=== PATIENT | female | born 1995 | race Caucasian/White ===

== ENCOUNTER 2018-03-03 15:30 | Inpatient (IN) | payer MEDICAID ==
[~2018-03-03] VITALS: Ht 157.5 cm; Wt 45.5 kg
[~2018-03-03 15:30] MED LIST: MACR100C PO; PYRI200T4 PO
[2018-03-03 15:34] VITALS: BP 124/78; PULSE 87; RESP 16; TEMP 98.3; O2SAT 99
--- NOTE | 2018-03-03 15:42 | PD ---
HPI Chief Complaint: Psychiatric Symptoms Time Seen by Provider: 15:40 Travel History International Travel<30 days: No Contact w/Intl Traveler<30days: No Traveled to known affect area: No History of Present Illness HPI 23-year-old female with history of schizophrenia is brought to the emergency department under Gonzalez act for psychiatric evaluation. Patient has not been taking medication. She tells me she does not need to take any medication. Her behavior has become more bizarre and paranoid per the Gonzalez act. Patient was Gonzalez acted for this and she does not believe that she needs to be here. She denies suicidal or homicidal ideations. Denies illicit drug use. She denies any acute medical needs. PFSH Past Medical History Schizophrenia: Yes ?: Not LMP: UNKNOWN Social History Alcohol Use: No Tobacco Use: No Substance Use: No Allergies-Medications (Allergen,Severity, Reaction): Coded Allergies: No Known Allergies (Unverified , 07/03/13) Reported Meds & Prescriptions Reported Meds & Active Scripts Active No Active Prescriptions or Reported Medications Review of Systems Except as stated in HPI: all other systems reviewed are Neg Physical Exam Narrative GENERAL: Well-nourished female patient in no acute distress SKIN: Focused skin assessment warm/dry. HEAD: Atraumatic. Normocephalic. EYES: Pupils equal and round. No scleral icterus. No injection or drainage. ENT: No nasal bleeding or discharge. Mucous membranes pink and moist. NECK: Trachea midline. No JVD. CARDIOVASCULAR: Regular rate and rhythm. No murmur appreciated. RESPIRATORY: No accessory muscle use. Clear to auscultation. Breath sounds equal bilaterally. GASTROINTESTINAL: Abdomen soft, non-tender, nondistended. Hepatic and splenic margins not palpable. MUSCULOSKELETAL: No obvious deformities. No clubbing. No cyanosis. No edema. NEUROLOGICAL: Awake and alert. No obvious cranial nerve deficits. Motor grossly within normal limits. Normal speech. Data Data Last Documented VS Vital Signs Date Time Temp Pulse Resp B/P (MAP) Pulse Ox O2 Delivery O2 Flow Rate FiO2 03/03/18 15:34 98.3 87 16 124/78 (93) 99 Orders Orders Complete Blood Count With Diff (03/03/18 15:40) Thyroid Stimulating Hormone (03/03/18 15:40) Basic Metabolic Panel (Bmp) (03/03/18 15:40) Ed Urine Pregnancytest Poc (03/03/18 15:40) Psych Screen (03/03/18 15:40) Drug Screen, Random Urine (03/03/18 15:40) Alcohol (Ethanol) (03/03/18 15:40) Diet Regular Basic (03/03/18 Dinner) Labs Laboratory Tests Test 03/03/18 15:55 White Blood Count 11.0 TH/MM3 Red Blood Count 4.76 MIL/MM3 Hemoglobin 14.0 GM/DL Hematocrit 41.3 % Mean Corpuscular Volume 86.8 FL Mean Corpuscular Hemoglobin 29.4 PG Mean Corpuscular Hemoglobin Concent 33.9 % Red Cell Distribution Width 12.5 % Platelet Count 260 TH/MM3 Mean Platelet Volume 10.0 FL Neutrophils (%) (Auto) 75.1 % Lymphocytes (%) (Auto) 19.6 % Monocytes (%) (Auto) 4.5 % Eosinophils (%) (Auto) 0.4 % Basophils (%) (Auto) 0.4 % Neutrophils # (Auto) 8.3 TH/MM3 Lymphocytes # (Auto) 2.1 TH/MM3 Monocytes # (Auto) 0.5 TH/MM3 Eosinophils # (Auto) 0.0 TH/MM3 Basophils # (Auto) 0.0 TH/MM3 CBC Comment DIFF FINAL Differential Comment Blood Urea Nitrogen 7 MG/DL Creatinine 0.91 MG/DL Random Glucose 134 MG/DL Calcium Level 8.9 MG/DL Sodium Level 138 MEQ/L Potassium Level 3.7 MEQ/L Chloride Level 105 MEQ/L Carbon Dioxide Level 22.2 MEQ/L Anion Gap 11 MEQ/L Estimat Glomerular Filtration Rate 77 ML/MIN Thyroid Stimulating Hormone 3rd Gen 0.522 uIU/ML Urine Opiates Screen NEG Urine Barbiturates Screen NEG Urine Amphetamines Screen NEG Urine Benzodiazepines Screen NEG Urine Cocaine Screen NEG Urine Cannabinoids Screen POS Ethyl Alcohol Level LESS THAN 3 MG/DL MDM Medical Decision Making Medical Screen Exam Complete: Yes Emergency Medical Condition: Yes Medical Record Reviewed: Yes Differential Diagnosis Mood disorder versus personality disorder versus adjustment reaction disorder Narrative Course 23-year-old female presents emergency department under Gonzalez act for psychiatric evaluation. Patient appears well and without distress. Her vital signs are stable. Lab work is ordered for medical clearance. Laboratory Tests Test 03/03/18 15:55 White Blood Count 11.0 TH/MM3 Red Blood Count 4.76 MIL/MM3 Hemoglobin 14.0 GM/DL Hematocrit 41.3 % Mean Corpuscular Volume 86.8 FL Mean Corpuscular Hemoglobin 29.4 PG Mean Corpuscular Hemoglobin Concent 33.9 % Red Cell Distribution Width 12.5 % Platelet Count 260 TH/MM3 Mean Platelet Volume 10.0 FL Neutrophils (%) (Auto) 75.1 % Lymphocytes (%) (Auto) 19.6 % Monocytes (%) (Auto) 4.5 % Eosinophils (%) (Auto) 0.4 % Basophils (%) (Auto) 0.4 % Neutrophils # (Auto) 8.3 TH/MM3 Lymphocytes # (Auto) 2.1 TH/MM3 Monocytes # (Auto) 0.5 TH/MM3 Eosinophils # (Auto) 0.0 TH/MM3 Basophils # (Auto) 0.0 TH/MM3 CBC Comment DIFF FINAL Differential Comment Blood Urea Nitrogen 7 MG/DL Creatinine 0.91 MG/DL Random Glucose 134 MG/DL Calcium Level 8.9 MG/DL Sodium Level 138 MEQ/L Potassium Level 3.7 MEQ/L Chloride Level 105 MEQ/L Carbon Dioxide Level 22.2 MEQ/L Anion Gap 11 MEQ/L Estimat Glomerular Filtration Rate 77 ML/MIN Thyroid Stimulating Hormone 3rd Gen 0.522 uIU/ML Urine Opiates Screen NEG Urine Barbiturates Screen NEG Urine Amphetamines Screen NEG Urine Benzodiazepines Screen NEG Urine Cocaine Screen NEG Urine Cannabinoids Screen POS Ethyl Alcohol Level LESS THAN 3 MG/DL Lab work is reviewed and without acute concern. Patient is medically cleared to undergo psychiatric screening for further evaluation and disposition. Diagnosis Primary Impression: Medical clearance for psychiatric admission Scripts No Active Prescriptions or Reported Meds Condition: Stable Leyda Simpson Mar 03, 2018 15:42
[2018-03-03 16:05] LABS: AUTOMATED NEUTROPHIL # 8.3 TH/MM3 (1.8-7.7); BASOPHIL % 0.4 % (0.0-2.0); EOSINOPHIL % 0.4 % (0.0-4.0); HEMATOCRIT 41.3 % (35.0-46.0); LYMPH % 19.6 % (9.0-44.0); LYMPHOCYTE # 2.1 TH/MM3 (1.0-4.8); MEAN CELL VOLUME 86.8 FL (80.0-100.0); MEAN CORPUSCULAR HEMOGLOBIN 29.4 PG (27.0-34.0); MEAN CORPUSCULAR HGB CONC 33.9 % (32.0-36.0); MONO % 4.5 % (0.0-8.0); MONOCYTE # 0.5 TH/MM3 (0-0.9); NEUT % 75.1 % (16.0-70.0); PLATELET COUNT 260 TH/MM3 (150-450); RED BLOOD COUNT 4.76 MIL/MM3 (4.00-5.30); RED CELL DISTRIBUTION WIDTH 12.5 % (11.6-17.2)
[2018-03-03 16:27] LABS: BICARBONATE 22.2 MEQ/L (21.0-32.0); BLOOD UREA NITROGEN 7 MG/DL (7-18); CALCIUM 8.9 MG/DL (8.5-10.1); CHLORIDE 105 MEQ/L (98-107); CREATININE 0.91 MG/DL (0.50-1.00); GLOMERULAR FILTRATION RATE 77 ML/MIN (>89); GLUCOSE,RANDOM 134 MG/DL (74-106); SODIUM (NA) 138 MEQ/L (136-145)
[2018-03-03 18:03] VITALS: BP 105/71; PULSE 74; RESP 18; O2SAT 99
[2018-03-03 22:30] VITALS: BP 105/65; PULSE 74; RESP 18; TEMP 98.3; O2SAT 98
[2018-03-04 02:44] VITALS: BP 103/64; PULSE 59; RESP 16; TEMP 97.5; O2SAT 99
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
[2018-03-04] MEDS ORDERED: ACETAMINOPHEN 325 MG TAB PO PRN (11:15)
[2018-03-04] MEDS ORDERED: ALUMINUM/MAGNESIUM/SIMETH 30 ML CUP PO PRN (11:15)
[2018-03-04] MEDS ORDERED: NICOTINE 21 MG/24 HR PATCH T-DERMAL PRN (11:15)
[2018-03-04] MEDS ORDERED: MAGNESIUM HYDROXIDE SUSP 30 ML CUP PO PRN (11:15)
[2018-03-04] MEDS ORDERED: REMOVE OLD NICODERM (NICOTINE) PATCH T-DERMAL PRN ×2 (11:30→21:00)
[2018-03-04 13:00] VITALS: BP 103/66; PULSE 77; RESP 18; TEMP 98.5; O2SAT 100
[2018-03-04 19:19] VITALS: BP 114/75; PULSE 94; RESP 18; TEMP 97.3; O2SAT 96
[2018-03-05 06:12] VITALS: BP 108/59; PULSE 73; RESP 16; TEMP 97.8; O2SAT 96
--- NOTE | 2018-03-05 13:00 | PD.TTN ---
Patient Problems 1. Discharge planning 2. Medication compliance 3. Knowledge deficit 4. Lack of coping skills Progress Toward Goals Provider Present: Dr. Juan Mcallister Provider Input: New Admit Lam Radford Mar 05, 2018 12:59
--- NOTE | 2018-03-05 13:55 | EKG ---
Date Performed: 03/05/2018 Time Performed: 13:37:10 PTAGE: 23 years EKG: Sinus rhythm WITH SINUS ARRHYTHMIA NORMAL ECG NO PREVIOUS TRACING DOCTOR: Viraj Hernández Interpretating Date/Time 03/05/2018 13:55:13
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
[2018-03-05 18:11] VITALS: BP 110/60; PULSE 80; RESP 16; TEMP 98; O2SAT 97
[2018-03-06 06:06] VITALS: BP 98/54; PULSE 67; RESP 17; TEMP 98.2; O2SAT 99
[2018-03-06 09:33] LABS: ALBUMIN 3.8 GM/DL (3.4-5.0); AST (GOT) 10 U/L (15-37); BICARBONATE 27.1 MEQ/L (21.0-32.0); BLOOD UREA NITROGEN 7 MG/DL (7-18); CALCIUM 8.7 MG/DL (8.5-10.1); CHLORIDE 102 MEQ/L (98-107); GLOMERULAR FILTRATION RATE 90 ML/MIN (>89); GLUCOSE,RANDOM 102 MG/DL (74-106); SODIUM (NA) 139 MEQ/L (136-145)
[2018-03-06 09:34] LABS: ALT (GPT) 13 U/L (10-53); CHOLESTEROL 139 MG/DL (120-200); TRIGLYCERIDES 57 MG/DL (42-150)
[2018-03-06 09:38] LABS: ALKALINE PHOSPHATASE 46 U/L (45-117); CHOLESTEROL/ HDL RATIO 2.69 RATIO; HDL CHOLESTEROL 51.6 MG/DL (40.0-60.0); LDL CHOLESTEROL 76 MG/DL (0-99); TOTAL BILIRUBIN ADULT 2.2 MG/DL (0.2-1.0)
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
[2018-03-06 16:59] LABS: HEMOGLOBIN A1C 4.6 % (4.3-6.0)
[2018-03-06 17:47] VITALS: BP 106/71; PULSE 76; RESP 17; TEMP 98.9; O2SAT 98
[2018-03-07 06:17] VITALS: BP 95/59; PULSE 67; RESP 20; TEMP 98; O2SAT 98
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
[2018-03-07 17:56] VITALS: BP 112/66; PULSE 93; RESP 20; TEMP 98.4; O2SAT 100
[2018-03-07] MEDS: ARIPiprazole 5 MG TAB PO SCH (19:32)
[2018-03-08 06:23] VITALS: BP 107/57; PULSE 78; RESP 14; TEMP 98; O2SAT 98
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
[2018-03-08 17:38] VITALS: BP 102/64; PULSE 85; RESP 16; TEMP 97.9; O2SAT 96
[2018-03-08] MEDS: ARIPiprazole 5 MG TAB PO SCH (20:13)
[2018-03-09 05:21] VITALS: BP 110/71; PULSE 84; RESP 17; TEMP 98.1; O2SAT 98
[2018-03-09] MEDS ORDERED: ARIP1TAB11 PO (11:30)
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
== END 2018-03-09 13:00 | disposition home or self-care (01) | DRG 885 ==
LOC: NEPJ 15:30 → NEDA 03-04 11:09 → H260 03-04 12:30
PROVIDERS: ADMIT Psychiatry & Neurology Psychiatry; ATTEND Psychiatry & Neurology Psychiatry
DX: F28 Other psychotic disorder not due to a substance or known physiological condition (principal); F12.10 Cannabis abuse, uncomplicated; Z81.8 Family history of other mental and behavioral disorders
CPT/HCPCS: 80048; 80053; 80061; 80307; 83036; 84443; 84703; 85025; 93005; 99285